=== PATIENT | male | born 1990 | race Caucasian/White ===

== ENCOUNTER 2018-01-26 08:13 | Day surgery (SDC) | payer OTHER ==
[~2018-01-26 08:13] MED LIST: DEXAMETHASONE 4 MG/ML 1 ML INJ
[2018-01-26] MEDS ORDERED: BUPIVACAINE 0.5% (SDV) 30 ML INJ ×2 (08:54→10:13)
[2018-01-26] MEDS ORDERED: POVIDONE IODINE 10% 28.4 GM OINT (08:54)
[2018-01-26] MEDS ORDERED: DEXAMETHASONE 4 MG/ML 1 ML INJ (08:54)
[2018-01-26] MEDS ORDERED: LIDOCAINE 1% (MPF) 30 ML INJ (09:58)
[2018-01-26] MEDS ORDERED: LIDOCAINE 2% (SDV) 5 ML INJ (10:09)
[2018-01-26] MEDS ORDERED: NEOSTIGMINE 3 MG/3 ML SYRINGE (10:09)
[2018-01-26] MEDS ORDERED: MIDAZOLAM 1 MG/ML 2 ML INJ (10:09)
[2018-01-26] MEDS ORDERED: FENTAnyl 50 MCG/ML VIAL (10:09)
[2018-01-26] MEDS ORDERED: PROPOFOL 20 ML (10:09)
[2018-01-26] MEDS ORDERED: ROCURONIUM 50 MG INJ (10:09)
[2018-01-26] MEDS ORDERED: GLYCOPYRROLATE 0.4 MG INJ (10:09)
[2018-01-26] MEDS ORDERED: morphine (1 MG/ML) 10ML SYRINGE IV ×3 (10:30)
[2018-01-26] MEDS ORDERED: LABETALOL HCL 20MG INJ IV (10:30)
[2018-01-26] MEDS ORDERED: ATROPINE 1 MG/10 ML SYRINGE IV (10:30)
[2018-01-26] MEDS ORDERED: hydrALAzine 20 MG INJ IV (10:30)
[2018-01-26] MEDS ORDERED: HYDROmorphONE 1 MG/5 ML IV SYRINGE IV ×2 (10:30)
[2018-01-26] MEDS ORDERED: ONDANSETRON 4 MG INJ IV (10:30)
[2018-01-26] MEDS ORDERED: FENTAnyl 50 MCG/ML VIAL IV ×2 (10:30)
[2018-01-26] MEDS ORDERED: OXYCODONE/ACETAMINOPHEN (5/325) TAB PO ×2 (10:30)
[2018-01-26] MEDS ORDERED: EPHEDrine SULFATE 50 MG/5 ML SYG IV (10:30)
[2018-01-26] MEDS ORDERED: DIPHENHYDRAMINE 50 MG INJ IV (10:30)
[2018-01-26] MEDS ORDERED: MIDAZOLAM 1 MG/ML 2 ML INJ IV (10:30)
[2018-01-26] MEDS ORDERED: MEPERIDINE 25 MG INJ IV (10:30)
[2018-01-26] MEDS ORDERED: FLUMAZENIL 0.5 MG INJ (10:35)
[2018-01-26] MEDS: LIDOCAINE 1% (MPF) 30 ML INJ INJ (10:35)
[2018-01-26] MEDS: HYDROmorphONE 1 MG/5 ML IV SYRINGE IV (11:14)
== END 2018-01-26 12:30 | disposition home or self-care (01) ==
LOC: SDS 08:13
DX: L72.8 Other follicular cysts of the skin and subcutaneous tissue (principal)
CPT/HCPCS: 11423; 88304